=== PATIENT | female | born 1975 | race Caucasian/White ===

== ENCOUNTER 2017-04-19 05:32 | Day surgery (SDC) | payer OTHER ==
[2017-04-18 15:23] LABS: HEMOGLOBIN 14.2 g/dL (12-16); MCH 33.1 pg (26.0-34.0); MCHC 33.8 g/dL (31.0-37.0); MCV 97.9 fL (80.0-100.0); MEAN PLATELET VOLUME 8.6 fL (7.4-10.4); RBC 4.29 10x6/uL (4.00-5.40); RDW 12.8 % (11.5-14.5)
[~2017-04-19] VITALS: Ht 154.9 cm; Wt 45.8 kg
[~2017-04-19 05:32] MED LIST: ATIVAN0.5 MG PO; HYDROCODONE-APA1 TAB PO; IBUPROFEN400 MG PO
[2017-04-19 09:30] VITALS: BP 115/57; Ht 154.9 cm; Wt 45.8 kg
[2017-04-19] MEDS ORDERED: DILAUDID4 MG PO (11:21)
--- NOTE | 2017-04-19 14:09 | OP ---
PATIENT NAME: BERNARDOAUGUST MEDICAL RECORD: [id number] :73 LOCATION:[facility] ADMISSION DATE: SURGEON: BARRINGTON TY MD DATE OF OPERATION: 04/19/2017 PREOPERATIVE DIAGNOSIS: Comminuted distal radius fracture of the left wrist. POSTOPERATIVE DIAGNOSIS: Comminuted distal radius fracture of the left wrist. PROCEDURE: Open reduction and internal fixation of comminuted distal radius fracture of the left wrist. SURGEON: Barrington Ty MD ANESTHESIA: General. INTRAOPERATIVE COMPLICATIONS: None. SUMMARY OF PATHOLOGIC FINDINGS: The patient had loss of volar tilt, loss of radial angle of inclination, and loss of radial height. These were all corrected intraoperatively and internal fixation was used to hold it in place. Internal fixation system used Arthrex. OPERATIVE SUMMARY IN DETAIL: After obtaining the appropriate preoperative orthopedic surgery consent as well as anesthetic consultation, evaluation and clearance, the patient was brought to the operating room and placed on the operating table in supine position. After general laryngeal mask was administered, tourniquet was placed about the proximal aspect of the left upper extremity. Left upper extremity was prepped and draped in a routine sterile fashion. The arm was elevated and exsanguinated, tourniquet inflated to 250 mmHg. A volar approach of Pedro was utilized. A formal carpal tunnel release was performed and dissection was carried down the flexor carpi ulnaris as a landmark. Dissection was carried down to the distal radius itself and the median nerve and flexor tendons were gently retracted both medially and laterally with direct visualization of the fracture, a reduction maneuver was performed under fluoroscopy and then the plate was affixed to the volar aspect of the wrist, provisionally with K-wires until it was in the appropriate position with the appropriate reduction. Serial and sequential drill and fill using combination of both compression screws and locking screws. Both the proximal and distal aspect of the wrist was fixed, all done under fluoroscopic guidance. Final fluoroscopic views were submitted for radiologist review. The wound was then copiously irrigated and closed with 2-0 Vicryl followed by 4-0 Prolene in running fashion. The area was locally infiltrated with 0.25% Marcaine. Sterile dressings were applied. The patient was awakened, taken to recovery in stable condition. All final needle and sponge counts were correct. TRANSINT:[id number] Voice Confirmation ID: [id number] DOCUMENT ID: [id number] OPERATIVE REPORT [id number] CHRISTIAN CHANG MD, BARRINGTON BROWN at 1409 CC: [id number] DICTATION DATE: 04/19/17 1124 [employer] TEACHER: 04/19/17 1151 REG [place] [id number] [place] [id number]
--- NOTE | 2017-04-19 17:11 | NUR ---
1315 IV DC WITH CATHER TIP INTACT
== END 2017-04-19 13:33 | disposition home or self-care (01) ==
LOC: D.OPS 05:32 → D.PAN 12:00 → D.OPS 12:00
PROVIDERS: Anesthesiology
DX: S52.592A Other fractures of lower end of left radius, initial encounter for closed fracture (principal); F17.200 Nicotine dependence, unspecified, uncomplicated; K21.9 Gastro-esophageal reflux disease without esophagitis; Z01.812 Encounter for preprocedural laboratory examination

== ENCOUNTER 2017-10-01 12:05 | Day surgery (SDC) | payer OTHER ==
[2017-09-28 08:12] LABS: HEMATOCRIT 40.8 % (36.0-48.0); MCH 33.1 pg (26.0-34.0); MCHC 34.3 g/dL (31.0-37.0); MCV 96.5 fL (80.0-100.0); MEAN PLATELET VOLUME 8.6 fL (7.4-10.4); RBC 4.23 10x6/uL (4.00-5.40); RDW 12.6 % (11.5-14.5); WBC 11.1 10x3/uL (4.8-10.8)
[~2017-10-01] VITALS: Ht 154.9 cm; Wt 48.1 kg
--- NOTE | ~2017-10-01 | OP ---
PATIENT NAME: BERNARDOAUGUST MEDICAL RECORD: [id number] :73 LOCATION:[facility] ADMISSION DATE: SURGEON: BARRINGTON TY MD DATE OF OPERATION: 10/01/2017 PREOPERATIVE DIAGNOSIS: Painful hardware of the left wrist. POSTOPERATIVE DIAGNOSIS: Painful hardware of the left wrist. PROCEDURE: Removal of the painful hardware of the left wrist (Arthrex volar radial plate). SURGEON: Barrington Ty MD ANESTHESIA: General. INTRAOPERATIVE COMPLICATIONS: None. SUMMARY OF PATHOLOGIC FINDINGS: Essentially none. The patient's thumb flexure had scarred into the tissue, probably making it hard for the patient to flex which was one of her chief complaints. The plate was removed and the fracture line was healed. OPERATIVE SUMMARY IN DETAIL: After obtaining the appropriate preop orthopedic surgery consent as well as anesthetic consultation, evaluation, and clearance, the patient was brought to the operating room and placed on the operating table in supine position. After adequate general laryngeal mask airway was administered, tourniquet placed on the proximal aspect of the left upper extremity. Left upper extremity was prepped and draped in routine sterile fashion. The arm was elevated and exsanguinated, tourniquet inflated to 250 mmHg. Previously utilized incision was utilized on the forearm. This was very carefully taken down past the flexures as well as the median nerve. Of note, the flexor pollicis longus did appear to be encased in scar tissue. This was completely dissected free back to the musculotendinous junction and a good excursion was achieved. After the plate was visualized, the screws were removed and the plate was removed with little degree of difficulty. The bone surface was rongeured smooth. Wound was then irrigated and closed with 2-0 Vicryl followed by 4-0 Prolene in running fashion. Sterile dressings were applied. The patient was awakened and taken to the recovery room in stable condition. All final needle and sponge counts were correct. TRANSINT:[id number] Voice Confirmation ID: [id number] DOCUMENT ID: [id number] BARRINGTON TY MD at 1714 CC: [id number] DICTATION DATE: 10/01/17 1612 WOMEN'S SWIM COACH: 10/01/177 [facility] 10/01/17 [place] [id number] [place] [address]
[~2017-10-01 12:05] MED LIST changes: +DILAUDID4 MG PO
[2017-10-01 12:56] VITALS: BP 85/69; Ht 154.9 cm; Wt 48.1 kg
[2017-10-01] MEDS ORDERED: PEPCID20 MG PO (12:56)
[2017-10-01] MEDS ORDERED: HYDROCODONE-APA1 TAB PO (16:14)
== END 2017-10-01 17:25 | disposition home or self-care (01) ==
LOC: D.OPS 12:05 → D.PAN 13:45 → D.OPS 14:00 → D.PAN 14:00 → D.OPS 17:25 → D.PAN 17:30
PROVIDERS: Anesthesiology
DX: T84.84XA Pain due to internal orthopedic prosthetic devices, implants and grafts, initial encounter (principal); M25.532 Pain in left wrist; Z01.812 Encounter for preprocedural laboratory examination

== ENCOUNTER 2017-12-05 13:35 | Emergency (ER) | payer OTHER ==
[~2017-12-05] VITALS: Ht 154.9 cm; Wt 47.7 kg
[~2017-12-05 13:35] MED LIST changes: +PEPCID20 MG PO
[2017-12-05 13:40] VITALS: Ht 154.9 cm; Wt 47.7 kg
[2017-12-05 14:24] LABS: BASOPHILS 0.2 % (0-2); EOSINOPHILS 1.5 % (0-7); HEMATOCRIT 41.8 % (36.0-48.0); HEMOGLOBIN 14.5 g/dL (12-16); IMMATURE GRANULOCYTES 0.3 % (0-5); LYMPHOCYTES 27.9 % (15-50); MCH 33.3 pg (26.0-34.0); MCHC 34.7 g/dL (31.0-37.0); MCV 96.1 fL (80.0-100.0); MEAN PLATELET VOLUME 8.9 fL (7.4-10.4); NEUTROPHILS 60.1 % (40-80); PLATELET COUNT 311 10x3/uL (130-400); RBC 4.35 10x6/uL (4.00-5.40); RDW 12.9 % (11.5-14.5); WBC 11.1 10x3/uL (4.8-10.8)
[2017-12-05 14:28] LABS: ALBUMIN 3.9 g/dL (3.4-5.0); ALKALINE PHOSPHATASE 91 U/L (46-116); ALT (SGPT) 17 U/L (10-68); BILIRUBIN - TOTAL 0.37 mg/dL (0.2-1.3); CALC OSMOLALITY 275 mosm/kg (275-300); CALCIUM 9.1 mg/dL (8.5-10.1); CARBON DIOXIDE 29.5 mmol/L (21.0-32.0); CHLORIDE - SERUM 101 mmol/L (98-107); CREATININE - SERUM 0.7 mg/dL (0.6-1.3); GLUCOSE 92 mg/dL (74-106); POTASSIUM - SERUM 4.2 mmol/L (3.5-5.1); PROTEIN - SERUM 7.9 g/dL (6.4-8.2); SODIUM 139 mmol/L (136-145); UREA NITROGEN 8 mg/dL (7-18); eGFR NON AFRICAN AMERICAN > 90 mL/min (90-120)
[2017-12-05 14:40] LABS: CKMB 0.5 U/L (0.0-3.6); CREATINE KINASE 53 UL (21-215); PRO BNP 69 pg/mL (0-125)
[2017-12-05 14:42] LABS: TROPONIN-I < 0.017 ng/mL (0.000-0.060)
[2017-12-05] MEDS ORDERED: VENTOLIN HFA18 GM INH (16:31)
[2017-12-05] MEDS ORDERED: CARAFATE1 G PO (16:31)
[2017-12-05 16:55] VITALS: BP 104/73
== END 2017-12-05 16:56 | disposition home or self-care (01) ==
LOC: D.ER 13:35
PROVIDERS: Family Medicine
DX: J44.1 Chronic obstructive pulmonary disease with (acute) exacerbation (principal); R53.83 Other fatigue; K21.9 Gastro-esophageal reflux disease without esophagitis; F17.200 Nicotine dependence, unspecified, uncomplicated